=== PATIENT | female | born 1945 | race Caucasian/White ===

== ENCOUNTER 2016-10-19 17:12 | Observation (INO) | payer OTHER ==
[~2016-10-19] VITALS: Ht 149.9 cm; Wt 103.4 kg
[~2016-10-19 17:12] MED LIST: ACIPHEX20 MG PO; ASPIRIN81 M1 PO; CRESTOR20 MG PO; DIOVAN160 MG PO; ENDOCET 5-3251 EACH PO; Flagyl IV; Flagyl PO; LEXAPRO10 MG PO; LOVAZA1 GM PO; LYRICA100 MG PO; LYRICA25 MG PO; MULTIPLE VITAM1 EAC1 PO; PARAFON FORTE500 MG PO; PLAVIX75 MG PO; PROTONIX40 MG PO; TOPROL XL50 MG PO; TRIAMTERENE-HC1 EACH PO; Vancocin Oral Soluti PO; Vicodin ES 7.5/750 PO; Zofran IV
[2016-10-19 18:39] LABS: HEMATOCRIT 43.3 % (36.0-46.0); MCH 30.3 PG (29.0-34.0); MCHC 32.8 G/DL (30.0-36.0); MCV 92.3 FL (83-99); MEAN PLAT.VOLUME 9.9 uM^3 (9.5-12.4); PLATELET COUNT 214 K/uL (156-360); RBC DIS.WIDTH-CV 13.5 % (11.8-14.6); RED BLOOD COUNT 4.69 M/uL (3.80-5.20); WHITE BLOOD COUNT 7.1 K/uL (4.1-10.2)
[2016-10-19 18:54] LABS: CHLORIDE 106 mEq/L (99-109); SODIUM 140 mEq/L (136-147)
[2016-10-19 18:56] LABS: GLUCOSE 103 mg/dL (70-99)
[2016-10-19 18:57] LABS: ANION GAP 13 MEQ/L (2-14)
[2016-10-19 19:00] LABS: GFR ESTIMATE (CALCULATED) 52 mL/min/
[2016-10-19 19:01] LABS: UREA NITROGEN (BUN) 15 mg/dL (9-23)
[2016-10-19 19:02] LABS: TROP-I INTERPRETATION NEGATIVE; TROPONIN-I < 0.01 ng/mL (0.0-0.30)
[2016-10-19] MEDS ORDERED: CRESTOR40 MG PO (22:16)
[2016-10-19] MEDS ORDERED: FISH OIL 1,2001 EAC4 PO (22:16)
[2016-10-19] MEDS ORDERED: METOPROLOL TART50 MG PO ×2 (22:17)
[2016-10-19] MEDS ORDERED: LO-DOSE ASPIRIN81 M2 PO (22:18)
[2016-10-19] MEDS ORDERED: LOSARTAN POTAS100 MG PO ×2 (22:18→22:20)
[2016-10-19] MEDS ORDERED: RESTASIS 01 DROP/0.4 BOTH EYES (22:19)
[2016-10-19] MEDS ORDERED: RANITIDINE HCL300 MG PO (22:19)
[2016-10-19] MEDS ORDERED: TIMOPTIC-0100 DROP/1 BOTH EYES (22:19)
[2016-10-19] MEDS ORDERED: PULMICORT FLE180 MCG IH (22:19)
[2016-10-19] MEDS ORDERED: PROBIOTIC1 EAC1 PO (22:19)
[2016-10-19] MEDS ORDERED: PRESERVISION T1 EACH PO (22:20)
[2016-10-19] MEDS ORDERED: MONTELUKAST SOD10 MG PO (22:20)
[2016-10-19 22:41] LABS: LIPASE 50 U/L (1.0-51.0)
[2016-10-20 00:38] VITALS: BP 125/59
[2016-10-20 01:34] LABS: TROP-I INTERPRETATION NEGATIVE; TROPONIN-I < 0.01 ng/mL (0.0-0.30)
[2016-10-20 04:46] VITALS: BP 96/56
[2016-10-20 07:46] LABS: Estimated Average Glucose 128 mg/dL (70-123); HEMOGLOBIN A1c (GLYCOHEMOGLOB) 6.1 % HGB (Below 5.7)
[2016-10-20 07:59] LABS: HDL CHOLESTEROL 42 MG/DL (Desirable>=50); LDL CHOLESTEROL 48 mg/dL (Desirable<100); NON-HDL CHOLESTEROL 78 mg/dL (Desirable<160); TOTAL CHOLESTEROL 120 mg/dL (Desirable<200); TRIGLYCERIDES 148 MG/DL (Normal: <150); TROP-I INTERPRETATION NEGATIVE; TROPONIN-I < 0.01 ng/mL (0.0-0.30)
[2016-10-20 08:52] VITALS: BP 158/73
[2016-10-20 12:00] VITALS: BP 140/63
[2016-10-20 15:52] VITALS: BP 135/65
[2016-10-20] MEDS ORDERED: PANTOPRAZOLE SO40 MG PO (16:27)
[2016-10-20] MEDS ORDERED: METOPROLOL TART25 MG PO (16:27)
[2016-10-20] MEDS ORDERED: FLORASTOR250 MG PO (16:27)
== END 2016-10-20 17:50 | disposition home or self-care (01) ==
LOC: EME 17:12 → EDOF 22:02 → 5WEST 10-20 00:11
PROVIDERS: Physician Assistant Medical
DX: R07.89 Other chest pain (principal); R00.1 Bradycardia, unspecified; I25.10 Atherosclerotic heart disease of native coronary artery without angina pectoris; I12.9 Hypertensive chronic kidney disease with stage 1 through stage 4 chronic kidney disease, or unspecified chronic kidney disease; N18.3 Chronic kidney disease, stage 3 (moderate); K21.9 Gastro-esophageal reflux disease without esophagitis; E66.01 Morbid (severe) obesity due to excess calories; Z95.5 Presence of coronary angioplasty implant and graft; E78.5 Hyperlipidemia, unspecified; E11.9 Type 2 diabetes mellitus without complications; Z87.891 Personal history of nicotine dependence; F41.9 Anxiety disorder, unspecified; F32.9 Major depressive disorder, single episode, unspecified; G89.29 Other chronic pain; R10.9 Unspecified abdominal pain; Z68.42 Body mass index [BMI] 45.0-49.9, adult
CPT/HCPCS: 71020; 74176; 80048; 80061; 83036; 83690; 84484; 85027; 93005; 94640; 99281; 99284; G0378